=== PATIENT | female | born 1935 ===

== ENCOUNTER → 2018-08-28 | Outpatient (REF) | payer OTHER | LOC: M LAB LCGH 14:47 | PROVIDERS: ATTEND Physician Assistant | DX: C44.01 Basal cell carcinoma of skin of lip (principal) ==

== ENCOUNTER → 2020-09-29 | Outpatient (REF) | payer MEDICARE | LOC: M LAB REF 14:34 | PROVIDERS: ATTEND Physician Assistant | DX: C44.319 Basal cell carcinoma of skin of other parts of face (principal) ==

== ENCOUNTER → 2023-08-02 | Outpatient (REF) | payer MEDICARE, OTHER | LOC: M SFHCDERM 18:03 | PROVIDERS: ATTEND Physician Assistant | DX: C44.41 Basal cell carcinoma of skin of scalp and neck (principal) ==